=== PATIENT | female | born 1960 | race Caucasian/White ===

== ENCOUNTER → 2017-02-28 | Outpatient (CLI) | payer BC ==
[2017-02-28 08:37] LABS: BASOPHILS # (AUTO) 0.08 10*3/UL; BASOPHILS % (AUTO) 1.2 % (0-1); EOSINOPHILS # (AUTO) 0.43 10*3/UL; EOSINOPHILS % (AUTO) 6.7 % (0-8); HEMATOCRIT 43.3 % (37.0-47.0); HEMOGLOBIN 15.5 g/dL (12.0-16.0); LYMPHOCYTES # (AUTO) 1.76 10*3/uL; MEAN CORPUSCULAR HEMOGLOBIN 31.5 PG (27-31); MEAN CORPUSCULAR HGB CONC 35.8 g/dL (33-37); MEAN PLATELET VOLUME 8.1 FL (7.4-12.2); MONOCYTES # (AUTO) 0.68 10*3/UL (0.3-0.8); MONOCYTES % (AUTO) 10.6 % (5-15); NEUTROPHILS # (AUTO) 3.45 10*3/UL; NEUTROPHILS % (AUTO) 53.8 % (50-80); RED BLOOD COUNT 4.92 10^6/uL (4.20-5.40)
[2017-02-28 08:49] LABS: PLATELET MORPHOLOGY COMMENT NORMAL MORPHOLOGY (NORM); RBC MORPHOLOGY COMMENT NORMAL MORPHOLOGY (NORM); WBC MORPHOLOGY COMMENT NORMAL MORPHOLOGY (NORM)
[2017-02-28 08:55] LABS: HEMOGLOBIN A1C 4.96 % (4.2-6.0)
[2017-02-28 08:59] LABS: CALCIUM 9.3 mg/dL (8.7-10.7); CHOL/HDL RATIO 4.43 RATIO (0-4.0); LDL CHOLESTEROL,CALCULATED 155.4 mg/dL; SERUM ALBUMIN 4.3 g/dL (3.5-4.8)
[2017-02-28 10:07] LABS: FREE T4 (FREE THYROXINE) 1.22 ng/dL (0.93-1.71)
== END ==
LOC: LAB 08:24
PROVIDERS: ATTEND Family Medicine
DX: Z00.01 Encounter for general adult medical examination with abnormal findings (principal); E03.9 Hypothyroidism, unspecified; R53.83 Other fatigue; Z83.3 Family history of diabetes mellitus
CPT/HCPCS: 36415; 80053; 80061; 82306; 83036; 84439; 84443; 84481; 85025

== ENCOUNTER → 2017-04-15 | Outpatient (CLI) | payer BC ==
[2017-04-15 11:45] LABS: FREE T4 (FREE THYROXINE) 1.12 ng/dL (0.93-1.71)
== END ==
LOC: LAB 09:57
PROVIDERS: ATTEND Family Medicine
DX: R94.6 Abnormal results of thyroid function studies (principal)
CPT/HCPCS: 36415; 84439; 84443; 84481